=== PATIENT | male | born 1995 ===

== ENCOUNTER 2018-02-21 12:06 | Emergency (ER) | payer OTHER ==
[2018-02-21 12:49] VITALS: BP 122/82
--- NOTE | 2018-02-21 13:53 | ED ---
Upper Extremity Pain - HPI Summary HPI Summary: 22 male presents with right thumb injury today. He states he crushed it in a car door. He has full range of motion. No numbness or tingling. Sublingual hematoma of his right thumb present. No other injury. Has no medical conditions. - History of Current Complaint Chief Complaint: UCUpperExtremity Stated Complaint: THUMB INJURY Time Seen by Provider: 02/21/18 13:42 - Allergies/Home Medications Allergies/Adverse Reactions: Allergies Allergy/AdvReac Type Severity Reaction Status Date / Time No Known Allergies Allergy Verified 02/21/18 12:49 Home Medications: Home Medications NK [No Home Medications Reported] 02/21/18 [History Confirmed 02/21/18] PMH/Surg Hx/FS Hx/Imm Hx Endocrine/Hematology History: Denies: Hx Diabetes, Hx Thyroid Disease Cardiovascular History: Denies: Hx Hypertension Respiratory History: Denies: Hx Asthma, Hx Chronic Obstructive Pulmonary Disease (COPD) GI History: Denies: Hx Ulcer - Surgical History Surgery Procedure, Year, and Place: right shoulder 2013. left knee 2016 Infectious Disease History: No Infectious Disease History: Denies: Hx Hepatitis, Hx Human Immunodeficiency Virus (HIV), Traveled Outside the [place] in Last 30 Days - Family History Known Family History: Positive: Non-Contributory - Social History Alcohol Use: Occasionally Substance Use Type: Reports: None Smoking Status (MU): Never Smoked Tobacco Review of Systems Negative: Fever Negative: Chest Pain Negative: Shortness Of Breath Positive: Myalgia - right thumb injury All Other Systems Reviewed And Are Negative: Yes Physical Exam Triage Information Reviewed: Yes Vital Signs On Initial Exam: Initial Vitals Temp Pulse Resp BP Pulse Ox 98.8 F 64 18 122/82 100 02/21/18 12:46 02/21/18 12:46 02/21/18 12:46 02/21/18 12:46 02/21/18 12:46 Vital Signs Reviewed: Yes Appearance: Positive: Well-Appearing Skin: Positive: Warm, Dry, Other - subungual hematoma of right thumb Head/Face: Positive: Normal Head/Face Inspection Eyes: Positive: Normal, Conjunctiva Clear ENT: Positive: Pharynx normal Respiratory/Lung Sounds: Positive: Clear to Auscultation, Breath Sounds Present Cardiovascular: Positive: Normal, RRR Musculoskeletal: Positive: Strength/ROM Intact - right thumb, Other - good pulses Neurological: Positive: Normal Psychiatric: Positive: Normal Procedures - Nail Trepanation right thumb Nail Trepanation Location: right thum Method of Drainage: nail cauterized Sterile Dressing Applied: No Finger Splint: No Diagnostics - Vital Signs Vital Signs Temp Pulse Resp BP Pulse Ox 02/21/18 12:46 98.8 F 64 18 122/82 100 - Laboratory Lab Statement: Any lab studies that have been ordered have been reviewed, and results considered in the medical decision making process. - Radiology thumb Radiology Interpretation Completed By: Radiologist Summary of Radiographic Findings: soft tissue swelling Course/Dx - Course Course Of Treatment: 22 male presents with right thumb injury today. He states he crushed it in a car door. He has full range of motion. No numbness or tingling. Sublingual hematoma of his right thumb present. No other injury. Has no medical conditions. On exam sublingual hematoma present. X-ray shows soft tissue swelling. Performed nail trepidation he got immediate relief of pain. Told to ice and elevate. Patient understands agrees to plan. - Diagnoses Differential Diagnosis/HQI/PQRI: Positive: Contusion, Fracture (Closed), Hematoma Provider Diagnoses: Subungual hematoma Discharge - Sign-Out/Discharge Documenting (check all that apply): Patient Departure All imaging exams completed and their final reports reviewed: Yes - Discharge Plan Condition: Good Disposition: HOME Patient Education Materials: Subungual Hematoma (ED) Referrals: No Primary Care Phys,NOPCP [Primary Care Provider] - Additional Instructions: ice, elevate take tyenlol or ibuprofen every 6 hours Return to [facility] if develop any new or worsening symptoms - Billing Disposition and Condition Condition: GOOD Disposition: Home - Attestation Statements Provider Attestation: Per institutional requirements, I have reviewed the chart, however, I was not consulted specifically or made aware of this patient by the midlevel provider. I did not personally evaluate, interact with , or disposition this patient.
== END 2018-02-21 14:02 | disposition home or self-care (01) ==
LOC: UCEAST 12:06
DX: S60.111A Contusion of right thumb with damage to nail, initial encounter (principal); W23.0XXA Caught, crushed, jammed, or pinched between moving objects, initial encounter; Y92.9 Unspecified place or not applicable
CPT/HCPCS: 11740; 99201; G0463